=== PATIENT | female | born 1935 | race Caucasian/White ===

== ENCOUNTER 2022-01-09 12:55 | Inpatient (IN) | payer OTHER ==
[~2022-01-09] VITALS: Ht 160 cm; Wt 47.3 kg
[~2022-01-09 12:55] MED LIST: FLEXERIL10 MG PO; HYDROCODON-ACE1 EAC2 PO; LIDOCAINE 2%30 ML TOP; LIDOCAINE 5% P1 EACH TOP; NORCO 5/3251 EACH PO; NORCO 7.5-3251 EACH PO; TRAZODONE 50MG50 MG PO; VOLTAREN100 GM TOP
[2022-01-09 14:48] LABS: BASOPHIL 0.4 % (0-2); EOSINOPHIL 0.1 % (0-7); HCT 33.6 % (37.0-47.0); HGB 10.5 g/dl (12.5-16.0); MCH 28.6 pg (25.0-31.0); MCHC 31.3 g/dL (32.0-36.0); MCV 91.6 fL (78.0-100.0); MONOCYTE 5.9 % (0-12); MPV 9.6 fL (6.0-9.5); NEUTROPHIL 85.3 % (41-80); NRBC 0; PLT 235 K/uL (150-400); RBC 3.67 M/uL (4.20-5.40); RDW 19.5 % (11.5-14.0); WBC 14.1 K/uL (4.0-10.5)
[2022-01-09 15:43] LABS: ALKALINE PHOSHATASE 60 U/L (46-116); ALT 26 U/L (14-59); AST 26 U/L (15-37); BILIRUBIN - TOTAL 0.4 mg/dL (0.2-1.0); BUN 34 mg/dL (7-18); BUN/CREAT RATIO (CALC) 24.6 RATIO; C-REACTIVE PROTEIN >18.00 mg/dL (<=0.90); CHLORIDE 99 mmol/L (98-107); CO2 (BICARBONATE) 28 mmol/L (21-32); CREATININE 1.38 mg/dL (0.51-0.95); GLOBULIN (CALCULATION) 3.6 g/dL; GLUCOSE 110 mg/dL (74-106); POTASSIUM 4.8 mmol/L (3.5-5.1); TOTAL PROTEIN 6.6 g/dL (6.4-8.2)
[2022-01-09 16:34] LABS: BILIRUBIN NEGATIVE (NEGATIVE); BLOOD NEGATIVE Ery/uL (NEGATIVE); COLOR YELLOW (YELLOW); GLUCOSE (U) NORMAL (NORMAL); LEUKOCYTES 3+ Leu/uL (NEGATIVE); NITRITE NEGATIVE (NEGATIVE); PROTEIN NEGATIVE (NEGATIVE); UROBILINOGEN 0.2 mg/dL (0.2-1.0)
[2022-01-09 16:39] LABS: CLARITY HAZY (CLEAR)
[2022-01-09 16:43] LABS: BACTERIA 2+; SQUAMOUS EPITHELIAL CELLS 20-50
[2022-01-09] MEDS ORDERED: TOPROL XL 25MG25 MG PO (20:01)
[2022-01-09] MEDS ORDERED: NEURONTIN300 MG PO (20:01)
[2022-01-09] MEDS ORDERED: CARAFATE1 GM PO (20:02)
[2022-01-09] MEDS ORDERED: CLONAZEPAM0.125 MG PO (20:03)
[2022-01-09] MEDS ORDERED: PLAQUENIL200 MG PO (20:05)
[2022-01-09] MEDS ORDERED: ONDANSETRON ODT4 MG PO (20:06)
[2022-01-09] MEDS ORDERED: PANTOPRAZOLE SO40 M2 PO (20:07)
[2022-01-09] MEDS ORDERED: SYNTHROID100 MCG PO (20:08)
[2022-01-09] MEDS ORDERED: AMIODARONE HCL100 MG PO (20:10)
[2022-01-09] MEDS ORDERED: PRAVACHOL20 MG PO (20:10)
[2022-01-09] MEDS ORDERED: PLAVIX75 MG PO (20:11)
[2022-01-10 07:17] LABS: BASOPHIL 0.5 % (0-2); EOSINOPHIL 0.6 % (0-7); HGB 9.9 g/dl (12.5-16.0); LYMPHOCYTE 14.7 % (15-48); MCH 28.5 pg (25.0-31.0); MCHC 30.9 g/dL (32.0-36.0); MCV 92.2 fL (78.0-100.0); MONOCYTE 6.5 % (0-12); MPV 9.7 fL (6.0-9.5); NEUTROPHIL 76.5 % (41-80); NRBC 0; PLT 235 K/uL (150-400); RBC 3.47 M/uL (4.20-5.40); RDW 19.5 % (11.5-14.0)
[2022-01-10 08:19] LABS: ALBUMIN 2.5 g/dL (3.4-5.0); ALKALINE PHOSHATASE 53 U/L (46-116); ALT 19 U/L (14-59); AST 24 U/L (15-37); BILIRUBIN - TOTAL 0.5 mg/dL (0.2-1.0); BUN 30 mg/dL (7-18); C-REACTIVE PROTEIN > 18.00 mg/dL (<=0.90); CHLORIDE 102 mmol/L (98-107); CO2 (BICARBONATE) 25 mmol/L (21-32); CREATININE 1.11 mg/dL (0.51-0.95); GLOBULIN (CALCULATION) 3.2 g/dL; GLUCOSE 53 mg/dL (74-106); MAGNESIUM 2.4 mg/dL (1.8-2.4); PHOSPHORUS 4.8 mg/dL (2.6-4.7); POTASSIUM 4.4 mmol/L (3.5-5.1); TOTAL PROTEIN 5.7 g/dL (6.4-8.2)
--- NOTE | 2022-01-10 21:44 | NUR ---
PATIENT VOIDED 250ML OF URINE, BLADDER SCANNED AND 36ML NOTED LEFT IN BLADDER
[2022-01-11 08:20] LABS: BUN/CREAT RATIO (CALC) 19.4 RATIO; CREATININE 0.98 mg/dL (0.51-0.95); POTASSIUM 3.8 mmol/L (3.5-5.1)
[2022-01-12 06:29] LABS: BASOPHIL 0.4 % (0-2); EOSINOPHIL 0.4 % (0-7); HCT 28.3 % (37.0-47.0); HGB 8.9 g/dl (12.5-16.0); LYMPHOCYTE 17.1 % (15-48); MCH 28.3 pg (25.0-31.0); MCHC 31.4 g/dL (32.0-36.0); MCV 90.1 fL (78.0-100.0); MONOCYTE 4.9 % (0-12); MPV 9.6 fL (6.0-9.5); NEUTROPHIL 75.8 % (41-80); NRBC 0; PLT 227 K/uL (150-400); RBC 3.14 M/uL (4.20-5.40); RDW 18.6 % (11.5-14.0); WBC 7.4 K/uL (4.0-10.5)
[2022-01-12 07:02] LABS: BUN 12 mg/dL (7-18); BUN/CREAT RATIO (CALC) 15.2 RATIO; C-REACTIVE PROTEIN >18.00 mg/dL (<=0.90); CHLORIDE 103 mmol/L (98-107); CO2 (BICARBONATE) 26 mmol/L (21-32); CREATININE 0.79 mg/dL (0.51-0.95); GLUCOSE 96 mg/dL (74-106); POTASSIUM 4.3 mmol/L (3.5-5.1)
[2022-01-12] MEDS ORDERED: AUGMENTIN 500-1 EACH PO (10:04)
[2022-01-12] MEDS ORDERED: FLORASTOR250 MG PO (10:04)
--- NOTE | 2022-01-12 11:36 | NUR ---
01/12/22 Ms. Rogel lives at home with her spouse. She is followed by a [facility]. She doesn't know the name of the agency. She has a cane, scooter, rw, wc, 3in1, and s. chair. - They are able to meet their financial obligations. - A referral was made to [facility] for nursing and PT.
== END 2022-01-12 13:10 | disposition home or self-care (01) | DRG 392 ==
LOC: FER 12:55 → FMS 17:18
PROVIDERS: Allergy & Immunology Allergy; Emergency Medicine; Nurse Practitioner; ADMIT Family Medicine
DX: K57.32 Diverticulitis of large intestine without perforation or abscess without bleeding (principal); N17.9 Acute kidney failure, unspecified; N39.0 Urinary tract infection, site not specified; K59.09 Other constipation; D64.9 Anemia, unspecified; I10 Essential (primary) hypertension; I25.10 Atherosclerotic heart disease of native coronary artery without angina pectoris; Z86.73 Personal history of transient ischemic attack (TIA), and cerebral infarction without residual deficits; E03.9 Hypothyroidism, unspecified; I48.91 Unspecified atrial fibrillation; K21.9 Gastro-esophageal reflux disease without esophagitis; E78.5 Hyperlipidemia, unspecified; M06.9 Rheumatoid arthritis, unspecified; I49.5 Sick sinus syndrome; Z95.0 Presence of cardiac pacemaker; Z88.2 Allergy status to sulfonamides; Z88.8 Allergy status to other drugs, medicaments and biological substances
CPT/HCPCS: 36415; 70450; 71045; 80048; 80053; 81001; 83735; 84100; 84145; 85025; 86140; 87088; 94760; 97162; 97166; 97530; 97530-GP; J1650; J2543; J7030; J7040; J7512